=== PATIENT | female | born 1960 | race Asian ===

== ENCOUNTER 2024-11-17 09:40 | Day surgery (SDC) | payer OTHER, SELFPAY ==
[2024-11-17] VITALS (8 sets, daily range): BP systolic 132–159; BP diastolic 76–86; BMI 33.1
[2024-11-17] MEDS: LOW STRENGTH ASPIRIN 324 MG PO (10:27)
[2024-11-17] MEDS: NSS 238 ML IV (10:55)
--- NOTE | 2024-11-17 16:30 | ITS.CL.PN ---
Custodial Engineer - Procedure Note
Procedure
Procedure Note:
CARDIAC CATHETERIZATION REPORT
Date of Procedure: 11/17/2024
Referring: Dr. Miguel Angel Mcguire MD
Indication: dyspnea on exertion, ACS (mildly elevated troponin in setting of acute on chronic dyspnea on exertion)
PROCEDURE(S)
1. left heart catheterization
2. coronary angiography
ACCESS: 6F right radial artery (closure: radial band)
CATHETERS
1. 6F JR4
2. 6F JL3.5
MODERATE SEDATION: 30 minutes of moderate sedation was utilized. An independent quality engineer medical device was present to assist with and help manage the patient's level of consciousness and physiologic status.
ULTRASOUND GUIDED VASCULAR ACCESS (right radial artery): Ultrasound was utilized for vascular access. The vessel was visualized under ultrasound and noted to be patent. An image of the vessel was stored permanently in the patient's medical record.
Under direct ultrasound guidance, vascular access was obtained using a modified Seldinger technique and a 6 [place] sheath was placed.
HEMODYNAMIC DATA
LV 154/10 (EDP 18) mmHg
AO 160/93 (mean 120) mmHg
CORONARY ANGIOGRAPHY
Dominance: right
LM: Large, normal
LAD: Large vessel giving rise to a large D1. There is no coronary artery disease
LCx: Large vessel giving rise to a large OM1, moderate caliber OM2, and large OM3. There is no coronary artery disease
RCA: large vessel giving rise to a large caliber RPDA and several small RPL branches. There is no coronary artery disease.
RADIATION: dose 295 mGy; DAP 18.3 Gy*cm2; fluoroscopy time 2.1 min
CONCLUSIONS
1. normal coronary arteries in a right dominant system
2. mildly elevated LV filling pressure and no aortic stenosis
RECOMMENDATIONS
1. expectant management after cardiac catheterization via right radial approach
2. primary prevention of coronary artery disease
3. further workup for etiology of acute on dyspnea on exertion and myocardial injury not related to epicardial coronary artery disease
Copy to: Dr. Miguel Angel Mcguire MD (marriage counselor); Dr. Peña Cisneros MD (PCP)
Signed: Yonathan Delgado MD, PhD
== END 2024-11-17 15:40 | disposition home or self-care (01) ==
LOC: CATH 09:40
PROVIDERS: ATTENDING PHYSICIAN Student in an Organized Health Care Education/Training Program; OTHER PHYSICIAN Internal Medicine Cardiovascular Disease
DX: R06.09 Other forms of dyspnea (principal); R79.89 Other specified abnormal findings of blood chemistry; Z79.899 Other long term (current) drug therapy
CPT/HCPCS: 99152; 99153; 76937; 93458; C1894; Q9967